=== PATIENT | male | born 1960 | race Hispanic/Latino ===

== ENCOUNTER 2024-03-23 11:36 | Emergency (ER) | payer BC ==
[~2024-03-23] VITALS: Ht 175.3 cm; Wt 69.9 kg
[2024-03-23 12:50] LABS: BASOPHILS # (AUTO) 0.04 K/uL (0.00-0.20); BASOPHILS % (AUTO) 0.5 % (0.0-5.0); EOSINOPHILS # (AUTO) 0.13 K/uL (0.00-0.70); EOSINOPHILS % (AUTO) 1.7 % (0.0-8.0); IMMATURE GRANULOCYTE ABSOLUTE 0.04 K/uL (0-1); LYMPHOCYTES # (AUTO) 2.1 K/uL (1.0-4.8); LYMPHOCYTES % (AUTO) 26.1 % (21.0-51.0); MEAN CORPUSCULAR HEMOGLOBIN 28.8 pg (27.0-33.0); MEAN CORPUSCULAR HGB CONC 34.1 g/dL (32.0-36.0); MEAN CORPUSCULAR VOLUME 84.4 fL (79-99); MONOCYTES # (AUTO) 0.6 K/uL (0.1-1.0); MONOCYTES % (AUTO) 7.6 % (3.0-13.0); NEUTROPHILS % (AUTO) 63.6 % (40.0-77.0); PLATELET COUNT (AUTO) 199 K/uL (130-400); RED BLOOD CELL COUNT(AUTO) 4.62 MIL/uL (4.50-6.20); RED CELL DISTRIBUTION WIDTH 12.3 % (11.0-15.5); WHITE BLOOD COUNT (AUTO) 7.9 K/uL (4.8-10.8)
[2024-03-23 13:10] LABS: CREATININE 0.8 mg/dL (0.5-1.3)
[2024-03-23 13:14] LABS: B-TYPE NATRIURETIC PEPTIDE 31 pg/mL (0-100)
[2024-03-23 14:29] LABS: ADD UA MICROSCOPIC YES; APPEARANCE,URINE CLEAR (CLEAR); BILIRUBIN,URINE NEGATIVE (NEGATIVE); COLOR,URINE LIGHT-YELLOW (YELLOW); GLUCOSE, URINE (UA) >=1000 mg/dL (NEGATIVE); KETONES,URINE NEGATIVE (NEGATIVE); LEUKOCYTE ESTERASE ,URINE NEGATIVE Leu/uL (NEGATIVE); NITRATE,URINE NEGATIVE (NEGATIVE); OCCULT BLOOD,URINE NEGATIVE (NEGATIVE); PROTEIN,URINE NEGATIVE (NEGATIVE); UROBILINOGEN,URINE 0.2 mg/dL (0.2-1.0)
[2024-03-23 14:30] LABS: RBC,URINE 0-1 /HPF (0-1); WBC,URINE 0-1 /HPF (0-1)
[2024-03-23 15:05] VITALS: BP 144/84; PULSE 67; RESP 16; TEMP 98.3; O2SAT 98
== END 2024-03-23 15:11 | disposition home or self-care (01) ==
LOC: EDH 11:36
DX: I10 Essential (primary) hypertension (principal); R42 Dizziness and giddiness; E11.9 Type 2 diabetes mellitus without complications; E78.00 Pure hypercholesterolemia, unspecified; Z98.890 Other specified postprocedural states
CPT/HCPCS: 36415; 71045; 80048; 81001; 82550; 83880; 84484; 85025; 93005

== ENCOUNTER → 2024-05-17 | Outpatient (CLI) | payer BC ==
[~2024-05-17] MED LIST: EMPA25TA PO; FERS325 PO; HYDR25TA PO; LOSA100T59 PO; METF-446 PO; ROSU40TA88 PO; VITAD50000 PO
[2024-05-17 12:42] LABS: ALBUMIN 3.7 g/dL (3.5-5.0); BILIRUBIN,TOTAL 0.3 mg/dL (0.2-1.0); CREATININE 0.7 mg/dL (0.5-1.3); POTASSIUM 4.1 mmol/L (3.5-5.1); TOTAL PROTEIN, SERUM 7.4 g/dL (6.0-8.3)
== END | disposition home or self-care (01) ==
LOC: LAB 08:08
PROVIDERS: ATTEND Student in an Organized Health Care Education/Training Program
DX: E11.9 Type 2 diabetes mellitus without complications (principal); R07.9 Chest pain, unspecified; E78.5 Hyperlipidemia, unspecified; I16.1 Hypertensive emergency
CPT/HCPCS: 36415; 80053

== ENCOUNTER → 2024-05-25 | Outpatient (CLI) | payer BC ==
[~2024-05-25] MED LIST changes: +IOHEXOL 350 MG/ML 100ML INFUS..BTL IV ONE
--- NOTE | 2024-05-25 13:13 | HMCIMG ---
CT OF THE CHEST WITH CONTRAST- CT Cardiac Angio co-interpretation This is done as part of the CT cardiac angiogram study. The interpretation of the coronary arteries will be done by lab nurse in a separate report. History: over-read Comparison: none CT Dose Index (CTDI): 77.90 mGy Dose Length Product (DLP): 493.40 total mGy PROTOCOL: Examination is done at 2.5 millimeter volumetric acquisition after contrast administration with Isovue 370, 100 cc IV, without complications. Photography is done at 5 millimeter thick intervals for the thorax. The examination begins above the heart and therefore the lung apices are incompletely included. The rest of the left lung is included but the right lung is only included up to its middle third. The periphery of the right lung is not included in the study. FINDINGS: The visualized part of the airway is preserved. The bony and soft tissue structures of the chest wall are unremarkable. The aorta is unremarkable. No mediastinal lymphadenopathy is seen. The lung windows demonstrate no worrisome pulmonary nodules, masses or infiltrates. There is no evidence of pulmonary embolism in the visualized lung segments. The upper abdominal views are unremarkable. Impression: No significant abnormalities identified.
--- NOTE | 2024-05-29 07:59 | CARDIOLOGY ---
RAD REPORT: [facility] CT ANGIO RADIOLOGY REPORT: CORONARY CT ANGIOGRAPHY DATE: May 29, 2024 QUALITY: Excellent CLINICAL HISTORY AND INDICATION: [ chest pain ] TECHNIQUE: After obtaining a preliminary supervisor speech image, contrast imaging performed on an [employer]illon [id number] scanner. A dedicated, limited window, coronary imaging protocol was used, with single breath-hold, retrospective ECG gating, and automated arrhythmia rejection. 100 cc of low osmolar contrast agent: Omnipaque 350 was delivered via a 18-gauge IV catheter in the right antecubital fossa, using a power injector and followed by 60 cc of normal saline bolus as a chaser. Collimated images were reformatted at 0.5 mm intervals, and sent to an offline independent workstation for interpretation, using 3D anatomic reconstructions: Curved multiplanar reconstructions, maximum intensity projections, and multiplanar imaging. No metoprolol was administered prior to scanning due to low baseline heart rate. 0.8 mg SL nitroglycerin was given. CORONARY ARTERY DESCRIPTIONS: The coronary arteries arise in normal position. Left main coronary artery: Normal caliber vessel that bifurcates into the LAD and LCx. No stenosis. Left anterior descending coronary artery: Normal caliber vessel and gives rise to diagonal and septal branches. There is ostial/proximal LAD stenosis with 70%. However, due to motion artifact from abrupt rise in heart rate during scan time, stenosis may be overestimated. Left circumflex coronary artery: Normal caliber, nondominant and gives rise to a large OM branch. There is mixed calcified and noncalcified plaque in the proximal LCx with 50% stenosis. There is calcified plaque in the mid LCx with 20-30% stenosis. Right coronary artery: Large, dominant vessel giving rise to the PL and PDA branches. There is mixed calcified and noncalcified plaque in the proximal RCA with 50% stenosis. There is calcified plaque in the mid and distal RCA, both with 50-60% stenosis. However, due to motion artifact from abrupt rise in heart rate during scan time, stenosis may be overestimated. CAD-RADs: 4A, severe stenosis of LAD vs motion artifact. Thoracic Aorta: Normal diameter. Kathy Avila MD Cardiovascular Disease [facility] KATHY AVILA MD May 29, 2024 07:59
== END | disposition home or self-care (01) ==
LOC: RAH 10:39
PROVIDERS: ATTEND Student in an Organized Health Care Education/Training Program
DX: R07.9 Chest pain, unspecified (principal)
CPT/HCPCS: 75574; Q9967

== ENCOUNTER 2024-06-22 13:49 | Observation (INO) | payer BC ==
[~2024-06-22] VITALS: Ht 175.3 cm; Wt 67.6 kg
[~2024-06-22 13:49] MED LIST changes: -IOHEXOL 350 MG/ML 100ML INFUS..BTL IV ONE
[2024-06-22 14:25] LABS: BASOPHILS # (AUTO) 0.05 K/uL (0.00-0.20); BASOPHILS % (AUTO) 0.5 % (0.0-5.0); EOSINOPHILS # (AUTO) 0.09 K/uL (0.00-0.70); EOSINOPHILS % (AUTO) 0.9 % (0.0-8.0); HEMATOCRIT 33.2 % (42-54); IMMATURE GRANULOCYTE ABSOLUTE 0.04 K/uL (0-1); LYMPHOCYTES # (AUTO) 1.9 K/uL (1.0-4.8); LYMPHOCYTES % (AUTO) 19.7 % (21.0-51.0); MEAN CORPUSCULAR HEMOGLOBIN 29.2 pg (27.0-33.0); MEAN CORPUSCULAR HGB CONC 34.9 g/dL (32.0-36.0); MEAN CORPUSCULAR VOLUME 83.6 fL (79-99); MONOCYTES # (AUTO) 0.5 K/uL (0.1-1.0); MONOCYTES % (AUTO) 4.7 % (3.0-13.0); NEUTROPHILS % (AUTO) 73.8 % (40.0-77.0); PLATELET COUNT (AUTO) 258 K/uL (130-400); RED BLOOD CELL COUNT(AUTO) 3.97 MIL/uL (4.50-6.20); RED CELL DISTRIBUTION WIDTH 12.2 % (11.0-15.5); WHITE BLOOD COUNT (AUTO) 9.5 K/uL (4.8-10.8)
--- NOTE | 2024-06-22 14:26 | EKG ---
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
[2024-06-22 14:38] LABS: CREATININE 0.7 mg/dL (0.5-1.3); POTASSIUM 3.8 mmol/L (3.5-5.1)
[2024-06-22 14:40] LABS: INR <= 0.93 (0.85-1.15); PROTHROMBIN TIME 10.2 SEC (9.6-11.6)
[2024-06-22 14:41] LABS: PARTIAL THROMBOPLASTIN TIME 24.1 SEC (26.3-35.5)
[2024-06-22 14:47] LABS: APPEARANCE,URINE CLEAR (CLEAR); BILIRUBIN,URINE NEGATIVE (NEGATIVE); COLOR,URINE LIGHT-YELLOW (YELLOW); GLUCOSE, URINE (UA) 300 mg/dL (NEGATIVE); KETONES,URINE NEGATIVE (NEGATIVE); LEUKOCYTE ESTERASE ,URINE NEGATIVE Leu/uL (NEGATIVE); NITRATE,URINE NEGATIVE (NEGATIVE); OCCULT BLOOD,URINE NEGATIVE (NEGATIVE); PH,URINE 5.5 (5.0-8.0); PROTEIN,URINE 10 mg/dL (NEGATIVE); UROBILINOGEN,URINE 0.2 mg/dL (0.2-1.0)
[2024-06-22 15:02] LABS: BACTERIA,URINE RARE /HPF (None Seen); MUCUS,URINE RARE LPF (None Seen)
[2024-06-22] MEDS ORDERED: acetaMINOPHEN 500 MG TABLET PO PRN (15:30)
[2024-06-22] MEDS ORDERED: ondanSETRON 4MG INJ IVP PRN (15:30)
[2024-06-22] MEDS ORDERED: NITROGLYCERIN 0.4 MG SL TAB SL PRN (15:30)
[2024-06-22] MEDS: 0.9%NACL 1000ML 1,000 ML IV SCH (15:59)
--- NOTE | 2024-06-22 15:59 | NUR ---
PER DR. CASTANEDA, HE CALLED DR. ABDI AND SPOKE TO HIM ABOUT CONSULT. STATES WILL NOT SEE PT UNLESS TROPONIN/CARDIAC PANEL IS ABNORMAL. OTHRWISE, PT WILL BE SEEN FOR PROCEDURE OUTPATIENT.
--- NOTE | 2024-06-22 16:00 | HP ---
[facility] HISTORY AND PHYSICAL Date of Service: Jun 22, 2024 Time of Service: 15:49 HISTORY OF PRESENT ILLNESS: Date of service: 06/22/2024, patient was seen in [facility] hallway B 63-year-old male with underlying history of hypertension, hyperlipidemia, type 2 diabetes mellitus, who presented to the ER for further evaluation of syncope. Patient states that he was following up in Dr. Avila's clinic today after he had coronary CT angiogram done as outpatient last month. Patient states that Dr. Avila had talked about potential cardiac catheterization after results of the CT coronary angiogram was noted to be abnormal. Per family at bedside, patient had sudden onset of syncope which lasted for several seconds. Patient had an episode of mild urinary incontinence with that. Denies any seizure-like activity, or tongue biting. Per Dr. Avila, patient likely had vasovagal syncope from reacting to the news of the abnormal coronary CT angiogram. On presentation, patient was noted to be afebrile and hemodynamically stable. Denies any episodes of chest pain, shortness of breath, focal weakness of upper or lower extremities. We will watch this patient for 24 hours and ensure he remains stable. I spoke with Dr. Lima on-call for Dr. Avila who stated that if cardiac panel remains negative and patient remains stable, patient can be discharged tomorrow with follow up as outpatient for cardiac catheterization on 06/30/2024. This was discussed with patient and family in detail. REVIEW OF SYSTEMS CONSTITUTIONAL: Denies fevers, chills, or night sweats. No unintentional weight loss reported. NEUROLOGICAL: Patient reports having syncopal episode in clinic today ENT: No hearing loss, otalgia, otorrhea, rhinitis, rhinorrhea, hoarseness, or sore throat. CARDIOVASCULAR: Denies any exertional angina, dyspnea on exertion, orthopnea, paroxysmal nocturnal dyspnea, palpitations, life-threatening arrhythmias, claudication. PULMONARY: Denies any shortness of breath, cough, phlegm/sputum, hemoptysis, pleuritic chest pain. SLEEP: Denies morning headaches, daytime somnolence or napping. Denies difficulty falling asleep, staying asleep, waking from sleep. Denies knowledge of snoring. GASTROINTESTINAL: Denies any type of dysphagia to either liquids or solids. Denies nausea, vomiting, pyrosis, early satiety, abdominal pain, diarrhea, constipation, or changes in stool consistency or caliber. Denies coffee-ground emesis, hematemesis, hematochezia, or melanotic stools. GENITOURINARY: Denies frequency, urgency, nocturia, hematuria or incontinence (Storage/Irritative symptoms.) Low urinary stream, straining to void, urinary intermittency or hesitancy, splitting of the voiding stream, terminal dribbling. ENDOCRINOLOGIC: Denies polyuria, polydipsia, polyphagia or heat/cold intolerances. HEMATOLOGIC: Denies thrombophilia/previous clots, or coagulopathy/bleeding disorders. ONCOLOGIC: Denies personal history of malignancy. DERMATOLOGIC: Denies rashes or pruritus. PSYCHIATRIC: Denies any suicidal or homicidal ideation. Denies hallucinations. PAST MEDICAL HISTORY: Hypertension, hyperlipidemia, type 2 diabetes mellitus PAST SURGICAL HISTORY: Denies any history of significant surgeries PAST SOCIAL HISTORY: Denies active smoking, drinks socially, denies any illicit drug use FAMILY HISTORY: History of heart disease in father and mother in patient states that the required cardiac bypass surgery Allergies: Patient has no known drug allergies Home medications: Family will be bringing list of home medications to be reconciled and updated, no home medication list available at bedside Coded Allergies: No Known Allergies (Unverified Allergy, Unknown, 03/23/24) PHYSICAL EXAM GENERAL APPEARANCE: The patient is awake, alert, and oriented, in no acute cardiopulmonary distress. NEUROLOGICAL: Cranial nerves II-XII grossly intact. Motor is 5/5 in bilateral upper and lower extremities proximal to distal. No sensory deficits. HEENT: Face is symmetric. Pupils are equal and reactive. Extraocular movements are intact. NECK: Supple. No JVD. No thyromegaly. No submental, submandibular, pre- /postauricular, occipital or supraclavicular lymphadenopathy. CHEST: Normal chest expansion. No Telemetry. LUNGS: Absence of any rales, rhonchi or any wheezing. CARDIOVASCULAR: Regular. S1 and S2 normal. No appreciable rubs, murmurs or gallops. ABDOMEN: Soft, nontender, and nondistended. There is no rebound, voluntary guarding, or rigidity. : Deferred. No Avalos. EXTREMITIES: Non-edematous and not cyanotic. No clubbing. Good capillary refill. SKIN: No skin breakdown. Vital Sign (Last 24 Hours) 06/22/24 06/22/24 13:51 14:33 Temp 98.1 Pulse 68 Resp 16 B/P (MAP) 146/72 Pulse Ox 97 O2 Delivery Room Air* O2 Flow Rate 0 FiO2 21 LABS: Laboratory: Test 06/22/24 14:39 06/22/24 14:15 Range/Units Urine Color LIGHT-YELLOW YELLOW Urine Appearance CLEAR CLEAR Urine pH 5.5 5.0-8.0 Urine Specific [place] 1.024 1.001-1.031 Urine Protein 10 H NEGATIVE mg/dL Urine Glucose (UA) 300 H NEGATIVE mg/dL Urine Ketones NEGATIVE NEGATIVE mg/dL Urine Occult Blood NEGATIVE NEGATIVE Urine Nitrate NEGATIVE NEGATIVE Urine Bilirubin NEGATIVE NEGATIVE mg/dL Urine Urobilinogen 0.2 0.2-1.0 mg/dL Urine Leukocyte Esterase NEGATIVE NEGATIVE Jamee/uL Urine RBC 2-5 H 0-1 /HPF Urine WBC 2-5 H 0-1 /HPF Urine Bacteria RARE None Seen /HPF Urine Hyaline Casts 2-5 H 0-1 /LPF /LPF White Blood Count 9.5 4.8-10.8 K/uL Red Blood Count 3.97 L 4.50-6.20 MIL/uL Hemoglobin 11.6 L 14.0-18.0 g/dL Hematocrit 33.2 L 42-54 % Mean Corpuscular Volume 83.6 79-99 fL Mean Corpuscular Hemoglobin 29.2 27.0-33.0 pg Mean Corpuscular Hemoglobin Concent 34.9 32.0-36.0 g/dL Red Cell Distribution Width 12.2 11.0-15.5 % Platelet Count 258 130-400 K/uL Mean Platelet Volume 11.4 H 7.5-10.5 fL Immature Granulocyte % (Auto) 0.4 0-1 % Neutrophils (%) (Auto) 73.8 40.0-77.0 % Lymphocytes (%) (Auto) 19.7 L 21.0-51.0 % Monocytes (%) (Auto) 4.7 3.0-13.0 % Eosinophils (%) (Auto) 0.9 0.0-8.0 % Basophils (%) (Auto) 0.5 0.0-5.0 % Neutrophils # (Auto) 7.0 1.8-7.7 K/uL Lymphocytes # (Auto) 1.9 1.0-4.8 K/uL Monocytes # (Auto) 0.5 0.1-1.0 K/uL Eosinophils # (Auto) 0.09 0.00-0.70 K/uL Basophils # (Auto) 0.05 0.00-0.20 K/uL Absolute Immature Granulocyte (auto 0.04 0-1 K/uL Nucleated Red Blood Cells 0.0 0.0-0.19 % Prothrombin Time 10.2 9.6-11.6 SEC Prothromb Time International Ratio <= 0.93 0.85-1.15 Activated Partial Thromboplast Time 24.1 L 26.3-35.5 SEC Sodium Level 132 L 136-145 mmol/L Potassium Level 3.8 3.5-5.1 mmol/L Chloride Level 96 L 101-111 mmol/L Carbon Dioxide Level 32 21-32 mmol/L Blood Urea Nitrogen 17 7-18 mg/dL Creatinine 0.7 0.5-1.3 mg/dL Glomerular Filtration Rate Calc 103 >90 mL/min Random Glucose 156 H 70-105 mg/dL Total Calcium 9.2 8.5-10.1 mg/dL Troponin I High Sensitivity 9 4-75 ng/L Current Medications Medications (Trade) Dose Ordered Sig/Farnk Route PRN Reason Start Time Stop Time Status Last Admin Dose Admin Acetaminophen (TYLenol 500MG TAB) 500 mg Q6H PRN PO MILD PAIN (1-3) 06/22/24 15:30 07/22/24 15:29 Aspirin (Aspirin 81mg Chew Tab) 81 mg DAILY PO 06/23/24 09:00 07/23/24 08:59 Insulin Human Regular (humuLIN R 100 UNIT/ML 3ML) INSULIN SLIDING SCAL... ACHS SQ 06/22/24 16:30 07/22/24 16:29 Nitroglycerin (Nitrostat) 0.4 mg AD PRN SL CHEST PAIN 06/22/24 15:30 07/22/24 15:29 Ondansetron HCl (zoFRAN 4MG INJ) 4 mg Q6H PRN IVP NAUSEA/VOMITING 06/22/24 15:30 07/22/24 15:29 Sodium Chloride 1,000 ml @ 50 mls/hr Q20H IV 06/22/24 16:00 07/22/24 15:59 DIAGNOSTICS / RADIOLOGY: Chest x-ray was independently reviewed, no significant acute infiltrates noted ASSESSMENT: Syncope, concern for vasovagal syncope, POA History of abnormal coronary CT angiogram, POA Underlying history of hypertension, POA Hyponatremia, mild Hyperlipidemia, POA Type 2 diabetes mellitus, POA PLAN: Patient will be admitted to medical-surgical floor under telemetry monitoring Monitor closely for signs of further syncope, we will obtain orthostatic vitals, rule out any significant cardiac arrhythmias I spoke with Dr. Lima on-call for heart clinic who states that he had spoken with Dr. Avila about the patient, patient likely had vasovagal syncope after being told his coronary CT angiogram was abnormal. Plan is for cardiac catheterization on 06/30/2024. For now, plan will be to observe this patient for 24 hours and rule out any significant cardiac arrhythmias and ensure cardiac panel remains negative. If patient remains stable in the next 24 hours, per Dr. Linda's, plan will be for patient to be discharge home and patient to have cardiac catheterization done as outpatient. If patient has any abnormal arrhythmias or cardiac panel is positive, or if patient has recurrence of symptoms, Cardiology will follow up with this patient tomorrow for consultation With regards to hyponatremia, we will start patient on gentle IV hydration with NS at 50 mL/hour, we will also check orthostatic vitals We will reconciled home medications once available, patient to continue with home antihypertensive therapy, losartan and amlodipine, we will check to see if patient is on HCTZ which can cause Hyponatremia We will trend cardiac panel q.6 hours to rule out active ACS All labs will be repeated in the morning DVT prophylaxis with Lovenox and GI prophylaxis with Protonix Date of service: 06/22/2024, Plan of care was discussed with patient at bedside, Jhonatan Dillon MD Advanced Care Planning: Which of the following were discussed: Hospice care: Yes __ No _X_ Therapeutic options: Yes _X_ No __ Advance directives: Yes _X_ No __ Other discussions: Discussed with who?: Patient Voluntary nature of this service was explained to the patient? Yes _x_ No __ Amount of time spent: 20 minutes JHONATAN DILLON MD Jun 22, 2024 16:00
--- NOTE | 2024-06-22 16:23 | HMCIMG ---
CT HEAD/BRAIN W/O CONTRAST HISTORY: Syncope COMPARISON: None TECHNIQUE: Multiple sequential axial images of the head were obtained from the base of the skull through vertex. Patient was not given contrast through intravenous route. FINDINGS: The ventricles and extraventricular CSF spaces are dilated consistent with cerebral atrophy. Nonspecific white matter changes seen. There are bilateral basal ganglia calcifications. There is no midline shift, mass effect or herniation. No acute intracranial bleed is seen. Visualized portion of the paranasal sinuses are grossly within normal limits. IMPRESSION: 1. No acute intracranial bleed is seen. 2. Atrophy with white matter changes. CT was performed with one or more following dose reduction techniques: automated exposure control, adjustment of the mA and kv according to patient's size, or use of a iterative reconstruction technique.
[2024-06-22 16:24] LABS: ALBUMIN 3.4 g/dL (3.5-5.0); BILIRUBIN,DIRECT 0.1 mg/dL (0.0-0.3); BILIRUBIN,TOTAL 0.3 mg/dL (0.2-1.0); TOTAL PROTEIN, SERUM 7.4 g/dL (6.0-8.3)
[2024-06-22] MEDS: INSULIN humuLIN R 100 UNIT/ML 3ML SQ SCH (16:30)
--- NOTE | 2024-06-22 16:34 | ERN ---
General Chief Complaint: Syncope Stated Complaint: SYNCOPE Time Seen by MD: 13:56 History of Present Illness Initial Comments 63-year-old male came in for a syncopal episode. Patient was at his cardiology clinic when he had loss of consciousness. Patient denies trauma or hitting his head during this episode. Patient otherwise has no concerns. Allergies: Coded Allergies: No Known Allergies (Unverified Allergy, Unknown, 03/23/24) Home Meds Reported Medications Cholecalciferol (Vitamin D3) 1,250 Mcg (17673 Unit) Cap, 13857 UNITS PO QWEEK, CAP 04/01/24 Empagliflozin (Jardiance) 25 Mg Tablet, 1 TAB PO DAILY for 30 Days, #30 TAB 0 Refills 04/01/24 Hydrochlorothiazide (Hydrochlorothiazide) 25 Mg Tablet, 1 TAB PO DAILY for 30 Days, #30 TAB 0 Refills 04/01/24 Metformin HCl (Metformin HCl) 1,000 Mg Tablet, 1 TAB PO BID for 30 Days, #60 TAB 0 Refills 04/01/24 Rosuvastatin Calcium (Rosuvastatin Calcium) 40 Mg Tablet, 1 TAB PO DAILY for high cholesterol for 30 Days, #30 TAB 0 Refills 04/01/24 Losartan Potassium (Losartan Potassium) 100 Mg Tablet, 100 MG PO HS, TAB 04/01/24 Ferrous Sulfate (Ferrous Sulfate) 325 Mg (65 Mg Iron) Ectab, 1 TAB PO BID for 30 Days, #60 TAB 0 Refills 04/01/24 Past Medical History Past Medical History: CAD, Diabetes-Type II, High Cholesterol, Hypertension Past Surgical History: None ROS Dictation CONSTITUTIONAL: Negative except for HPI HEAD/FACE: Negative except for HPI EENT: Negative except for HPI RESPIRATORY: Negative except for HPI GASTROINTESTINAL/ABDOMINAL: Negative except for HPI GENITOURINARY: Negative except for HPI MUSCULOSKELETAL: Negative except for HPI INTEGUMENTARY: Negative except for HPI NEUROLOGICAL/PSYCH: Negative except for HPI HEMATOLOGIC/LYMPHATIC: Negative except for HPI All Systems Negative, Except as noted above. 13 point review of systems assessed and all negative except for above. Physical Exam Physical Exam Dictation Vital Signs reviewed General Appearance: Alert, oriented x 3, no acute distress, well developed, nourished. Head and Face: non-traumatic. Eyes: PERRL, pink conjunctivas, eyelid no trauma, anterior chamber with arcus senilis. Ears: Pinnas intact and no signs of trauma or erythema ear canals clear and no discharge TM no erythema Nose: No discharge, no bleeding. Oropharynx: Mouth normal, tongue pink, pharynx clear,no erythema, tonsils no exudates, no abscesses noted, mucous membrane moist Neck: Supple, non-tender, no thyromegaly, no masses, no JVD, no bruits Breast:Deferred Chest:No tenderness, no crepitus, no paradoxical movement, no retractions Lungs:Clear, well-ventilated, symmetric, no rales, no wheezing, no rhonchi, no stridor, good breath sounds bilaterally Heart: Regular rate, regular rhythm, no murmur, no gallops Vascular: no peripheral edema, Abdomen: Soft, positive bowel sounds, nondistended, no guarding, nontender, no rebound, no masses no hepatomegaly, no splenomegaly, no Christopher's sign, no hernias. Rectal: Deferred Genital: Deferred Neurological: Normal speech, motor function intact, sensory function intact Musculoskeletal: Neck nontender, full range of motion, back nontender, full range of motion, Extremities: nontender, full range of motion Skin: Color pink, dry, no turgor, no rash, no lacerations, no abrasions, no contusions. Lymphatic: Deferred Results Laboratory and Microbiology Lab and Micro Result Laboratory Tests Test 06/22/24 14:15 06/22/24 14:39 White Blood Count 9.5 K/uL (4.8-10.8) Red Blood Count 3.97 MIL/uL (4.50-6.20) L Hemoglobin 11.6 g/dL (14.0-18.0) L Hematocrit 33.2 % (42-54) L Mean Corpuscular Volume 83.6 fL (79-99) Mean Corpuscular Hemoglobin 29.2 pg (27.0-33.0) Mean Corpuscular Hemoglobin Concent 34.9 g/dL (32.0-36.0) Red Cell Distribution Width 12.2 % (11.0-15.5) Platelet Count 258 K/uL (130-400) Mean Platelet Volume 11.4 fL (7.5-10.5) H Immature Granulocyte % (Auto) 0.4 % (0-1) Neutrophils (%) (Auto) 73.8 % (40.0-77.0) Lymphocytes (%) (Auto) 19.7 % (21.0-51.0) L Monocytes (%) (Auto) 4.7 % (3.0-13.0) Eosinophils (%) (Auto) 0.9 % (0.0-8.0) Basophils (%) (Auto) 0.5 % (0.0-5.0) Neutrophils # (Auto) 7.0 K/uL (1.8-7.7) Lymphocytes # (Auto) 1.9 K/uL (1.0-4.8) Monocytes # (Auto) 0.5 K/uL (0.1-1.0) Eosinophils # (Auto) 0.09 K/uL (0.00-0.70) Basophils # (Auto) 0.05 K/uL (0.00-0.20) Absolute Immature Granulocyte (auto 0.04 K/uL (0-1) Nucleated Red Blood Cells 0.0 % (0.0-0.19) Prothrombin Time 10.2 SEC (9.6-11.6) Prothromb Time International Ratio <= 0.93 (0.85-1.15) Activated Partial Thromboplast Time 24.1 SEC (26.3-35.5) L Sodium Level 132 mmol/L (136-145) L Potassium Level 3.8 mmol/L (3.5-5.1) Chloride Level 96 mmol/L (101-111) L Carbon Dioxide Level 32 mmol/L (21-32) Blood Urea Nitrogen 17 mg/dL (7-18) Creatinine 0.7 mg/dL (0.5-1.3) Glomerular Filtration Rate Calc 103 mL/min (>90) Random Glucose 156 mg/dL (70-105) H Total Calcium 9.2 mg/dL (8.5-10.1) Total Bilirubin 0.3 mg/dL (0.2-1.0) Direct Bilirubin 0.1 mg/dL (0.0-0.3) Aspartate Amino Transf (AST/SGOT) 15 U/L (10-37) Alanine Aminotransferase (ALT/SGPT) 22 U/L (12-78) Alkaline Phosphatase 94 U/L (50-136) Troponin I High Sensitivity 9 ng/L (4-75) Total Protein 7.4 g/dL (6.0-8.3) Albumin 3.4 g/dL (3.5-5.0) L Urine Color LIGHT-YELLOW (YELLOW) Urine Appearance CLEAR (CLEAR) Urine pH 5.5 (5.0-8.0) Urine Specific [place] 1.024 (1.001-1.031) Urine Protein 10 mg/dL (NEGATIVE) H Urine Glucose (UA) 300 mg/dL (NEGATIVE) H Urine Ketones NEGATIVE mg/dL (NEGATIVE) Urine Occult Blood NEGATIVE (NEGATIVE) Urine Nitrate NEGATIVE (NEGATIVE) Urine Bilirubin NEGATIVE mg/dL (NEGATIVE) Urine Urobilinogen 0.2 mg/dL (0.2-1.0) Urine Leukocyte Esterase NEGATIVE Jamee/uL Urine RBC 2-5 /HPF (0-1) H Urine WBC 2-5 /HPF (0-1) H Urine Bacteria RARE /HPF (None Seen) Urine Hyaline Casts 2-5 /LPF (0-1 /LPF) H MDM MDM: Differential diagnosis: Rationale: Tests considered and ordered secondary to shared decision making include: Previous outside records reviewed: Old ER visits. Risk of complication and/or morbidity or mortality of patient management: None Medications-Per medication reconciliation Need for hospitalization: Patient does meet criteria for hospitalization. Need for emergency major/minor surgery: No There are no social concerns with this patient. Prescription drug management Prescriptions will include symptomatic care Patient's prior external medical records from other ER visits were reviewed by me as indicated. Prior testing and results from previous visits were reviewed. Prior tests were taken into account with medical decision making and resource utilization, independent historian/historians were used to obtain complete medical history. I independently interpreted the test that were performed, results were reviewed by me and considered findings on radiology if ordered. Medical management and examination interpretation discussions were had by me with other qualified healthcare professionals as indicated for the patient's care. ED Course Orders Procedure Category Date Status Time 12 Lead Ekg Tracing- EKG 06/22/24 Resulted Technical 14:04 Cbc With Differential LAB 06/22/24 Complete 14:04 Basic Metabolic Panel LAB 06/22/24 Complete 14:04 Pt And Ptt LAB 06/22/24 Complete 14:04 Troponin I High LAB 06/22/24 Complete Sensitivity 14:04 Urinalysis LAB 06/22/24 Complete W/Microscopic 14:04 Chest 1vw RAD 06/22/24 Taken 14:04 Ct Head/Brain W/O CT 06/22/24 Resulted Contrast 14:04 Admit Orders ADM 06/22/24 Transmitted 15:24 Cardiac Panel LAB 06/22/24 Logged 18:00 Cardiac Panel LAB 06/23/24 Verified 00:00 Scd Both Legs While CPOE 06/22/24 Transmitted In Bed 15:29 Acetaminophen 500mg PHA 06/22/24 In Process Tab (Tylenol 500mg T 15:30 Ondansetron 4mg Inj PHA 06/22/24 In Process (Zofran 4mg Inj) 15:30 Nitroglycerin 0.4mg PHA 06/22/24 In Process Sl Tab (Nitrostat) 15:30 Orthostatic Vital CPOE 06/22/24 Transmitted Signs 15:30 Cbc With Differential LAB 06/23/24 Verified 04:00 Comprehensive LAB 06/23/24 Verified Metabolic Panel 04:00 Magnesium LAB 06/23/24 Verified 04:00 Initiate ROMI 06/22/24 In Process Hyperglycemia Protoco 15:32 Insulin Regular, PHA 06/22/24 In Process Human 3ml (Humulin R 16:30 0.9%Nacl 1000ml (Ns PHA 06/22/24 In Process 1000ml) 16:00 Aspirin 81mg Chew Tab PHA 06/23/24 In Process (Aspirin 81mg Chew 09:00 *Nursing CPOE 06/22/24 Transmitted Communication: 15:35 Hepatic Function Panel LAB 06/22/24 Complete 15:44 Gi Soft/[place] Diet DIET 06/22/24 Transmitted Dinner Current Medications Medications (Trade) Dose Ordered Sig/Frank Route PRN Reason Start Time Stop Time Status Last Admin Dose Admin Acetaminophen (TYLenol 500MG TAB) 500 mg Q6H PRN PO MILD PAIN (1-3) 06/22/24 15:30 07/22/24 15:29 Aspirin (Aspirin 81mg Chew Tab) 81 mg DAILY PO 06/23/24 09:00 07/23/24 08:59 Insulin Human Regular (humuLIN R 100 UNIT/ML 3ML) INSULIN SLIDING SCAL... ACHS SQ 06/22/24 16:30 07/22/24 16:29 Nitroglycerin (Nitrostat) 0.4 mg AD PRN SL CHEST PAIN 06/22/24 15:30 07/22/24 15:29 Ondansetron HCl (zoFRAN 4MG INJ) 4 mg Q6H PRN IVP NAUSEA/VOMITING 06/22/24 15:30 07/22/24 15:29 Sodium Chloride 1,000 ml @ 50 mls/hr Q20H IV 06/22/24 16:00 07/22/24 15:59 06/22/24 15:59 Vital Signs Date Time Temp Pulse Resp B/P (MAP) Pulse Ox O2 Delivery O2 Flow Rate FiO2 06/22/24 14:33 68 16 146/72 97 Room Air* 0 21 06/22/24 13:51 98.1 70 17 152/87 98 Room Air 0 DX & DISP Disposition: Inpatient Departure Impression: Primary Impression: Syncope Condition: Stable Referrals: LOLA WOLFF (PCP) BONG NICOLE MD Jun 22, 2024 16:34
--- NOTE | 2024-06-22 16:52 | NUR ---
DR ABDI NOW AT BEDSIDE
--- NOTE | 2024-06-22 16:55 | NUR ---
DR. ABDI AT BEDSIDE
--- NOTE | 2024-06-22 16:57 | HMCIMG ---
CHEST 1VW HISTORY: Shortness of breath COMPARISON: 03/31/2024 FINDINGS: A frontal projection of the chest was obtained. No acute pulmonary infiltrates is seen. The heart is borderline enlarged. Degenerative changes are seen. Prominent interstitial markings are seen. No evidence of aortic calcification is seen. IMPRESSION: 1. No acute pulmonary infiltrate is seen.
[2024-06-22] MEDS ORDERED: hydrALAZine 20MG/ML VIAL IV PRN (17:30)
[2024-06-22] MEDS ORDERED: ROSU40TA88 PO (19:59)
[2024-06-22] MEDS ORDERED: SPIR25TA6 PO (19:59)
[2024-06-22] MEDS ORDERED: HYDR25TA PO (19:59)
[2024-06-22] MEDS ORDERED: METF-446 PO (19:59)
[2024-06-22] MEDS ORDERED: LOSA100T59 PO (19:59)
[2024-06-22] MEDS ORDERED: AMLO-258 PO (19:59)
[2024-06-22] MEDS: LoSARTan 100 MG TABLET PO SCH (20:23)
--- NOTE | 2024-06-22 22:27 | NUR ---
Vu DOLAN NP HERE TO SEE PATIENT
--- NOTE | 2024-06-22 22:29 | CONS ---
[facility] CONSULTATION NOTE Date Patient Seen: Jun 22, 2024 Time of Visit: 22:29 Supervising Physician: [ ] Reason for Consultation: [ ] Primary Care Physician: [ ] Outpatient Specialists: [ ] Inpatient Consults: [ ] PROBLEM LIST: 1. [ ] 2. [ ] 3. [ ] 4. [ ] 5. [ ] HPI: [ ] PAST MEDICAL HX: see above PAST SURGICAL HX: noncontributory SOCIAL HISTORY: No tobacco, ETOH, or illicit drug use Coded Allergies: No Known Allergies (Unverified Allergy, Unknown, 03/23/24) REVIEW OF SYSTEMS: 12 point ROS reviewed with patient. Pertinent positives mentioned above. Otherwise negative. PHYSICAL EXAM: GENERAL: alert, weak, awake oriented x 3 HEENT: EOMI, Sclera non icteric, moist mucosa NECK: Supple, no JVD, trachea midline LUNGS: Clear breath sounds bilaterally. No wheezes HEART: Regular rate and rhythm. Normal S1 and S2, without murmurs ABD: Abdomen soft, nontender. Bowel sounds present EXT: No clubbing cyanosis or edema NEURO: Alert and oriented to person, follows commands Vital Signs (last 8hr) Date Time Temp Pulse Resp B/P (MAP) Pulse Ox O2 Delivery O2 Flow Rate FiO2 06/22/24 20:17 98.6 71 18 153/83 99 Room Air* 0 21 06/22/24 16:57 70 16 166/94 97 Room Air* 0 21 06/22/24 16:57 72 16 162/83 99 Room Air* 0 21 06/22/24 16:56 65 16 160/86 99 Room Air* 0 21 06/22/24 14:33 68 16 146/72 97 Room Air* 0 21 LABS: Hematology Labs: Test 06/22/24 14:15 Range/Units White Blood Count 9.5 4.8-10.8 K/uL Red Blood Count 3.97 L 4.50-6.20 MIL/uL Hemoglobin 11.6 L 14.0-18.0 g/dL Hematocrit 33.2 L 42-54 % Mean Corpuscular Volume 83.6 79-99 fL Mean Corpuscular Hemoglobin 29.2 27.0-33.0 pg Mean Corpuscular Hemoglobin Concent 34.9 32.0-36.0 g/dL Red Cell Distribution Width 12.2 11.0-15.5 % Platelet Count 258 130-400 K/uL Mean Platelet Volume 11.4 H 7.5-10.5 fL Immature Granulocyte % (Auto) 0.4 0-1 % Neutrophils (%) (Auto) 73.8 40.0-77.0 % Lymphocytes (%) (Auto) 19.7 L 21.0-51.0 % Monocytes (%) (Auto) 4.7 3.0-13.0 % Eosinophils (%) (Auto) 0.9 0.0-8.0 % Basophils (%) (Auto) 0.5 0.0-5.0 % Neutrophils # (Auto) 7.0 1.8-7.7 K/uL Lymphocytes # (Auto) 1.9 1.0-4.8 K/uL Monocytes # (Auto) 0.5 0.1-1.0 K/uL Eosinophils # (Auto) 0.09 0.00-0.70 K/uL Basophils # (Auto) 0.05 0.00-0.20 K/uL Absolute Immature Granulocyte (auto 0.04 0-1 K/uL Nucleated Red Blood Cells 0.0 0.0-0.19 % Chemistry Labs: Test 06/22/24 20:49 06/22/24 18:24 06/22/24 14:15 Range/Units Whole Blood Glucose 197 #H 70-110 MG/DL Total Creatine Kinase 46 # 21-232 U/L Troponin I High Sensitivity 8.2 4-75 ng/L Sodium Level 132 L 136-145 mmol/L Potassium Level 3.8 3.5-5.1 mmol/L Chloride Level 96 L 101-111 mmol/L Carbon Dioxide Level 32 21-32 mmol/L Blood Urea Nitrogen 17 7-18 mg/dL Creatinine 0.7 0.5-1.3 mg/dL Glomerular Filtration Rate Calc 103 >90 mL/min Random Glucose 156 H 70-105 mg/dL Total Calcium 9.2 8.5-10.1 mg/dL Total Bilirubin 0.3 0.2-1.0 mg/dL Direct Bilirubin 0.1 0.0-0.3 mg/dL Aspartate Amino Transf (AST/SGOT) 15 10-37 U/L Alanine Aminotransferase (ALT/SGPT) 22 12-78 U/L Alkaline Phosphatase 94 50-136 U/L Total Protein 7.4 6.0-8.3 g/dL Albumin 3.4 L 3.5-5.0 g/dL Coagulation Labs: Test 06/22/24 14:15 Range/Units Prothrombin Time 10.2 9.6-11.6 SEC Prothromb Time International Ratio <= 0.93 0.85-1.15 Activated Partial Thromboplast Time 24.1 L 26.3-35.5 SEC DIAGNOSTICS / RADIOLOGY RESULTS: [ ] PLAN NEURO: Minimize central acting medications as possible. Maintain fall precautions, adequate lighting during the day PULMONARY: Supplemental 02 as needed. Maintain aspiration precautions at all times CARDIOVASCULAR: Follow hemodynamics. Vital signs per facility protocol GI & NUTRITION: Continue with nutritional support. Continue stool softeners and laxatives as needed. KIDNEYS & ELECTROLYTES: Strict monitoring of intake, output and overall fluid balance. Avoid nephrotoxic medications to the extent possible. Medications to be dosed according to renal function. Monitor electrolytes and replace as needed ENDOCRINE: Maintain blood glucose between 100-180 at all times. Hypoglycemia protocol in place INFECTIOUS DISEASE: Trend temperature, WBC and procalcitonin level Follow cultures, deescalate antibiotics as soon as possible. Panculture if new onset fever ONCOLOGY/HEMATOLOGY/COAGULATION: Monitor for s/s of bleeding Monitor hemoglobin, coagulation studies as needed SKIN: Pressure ulcer prevention per facility protocol Specialty mattress ORTHO/REHAB: Continue PT/OT Prophylaxis: Continue GI and DVT prophylaxis Code Status: Full Resuscitation Disposition: TBD Other: Total patient care time exceeds 35 minutes excluding all procedures. SULEMA DOLAN [employer] Jun 22, 2024 22:29
--- NOTE | 2024-06-22 23:30 | NUR ---
Pt arrives to room 229. No CP, SOB, or discomfort. Pt aax3. Education done. Pt oriented to room, call light in reach, bed alarm on. Pt meds reconciled. Pt understands plan of care.
[2024-06-22 23:32] VITALS: BP 157/86; PULSE 69; RESP 18; TEMP 98.1; O2SAT 98
[2024-06-23] VITALS: O2SAT 99
[2024-06-23 04:00] VITALS: BP 133/78; PULSE 63; RESP 18; TEMP 98.2
[2024-06-23 04:56] LABS: BASOPHILS # (AUTO) 0.03 K/uL (0.00-0.20); BASOPHILS % (AUTO) 0.4 % (0.0-5.0); EOSINOPHILS # (AUTO) 0.12 K/uL (0.00-0.70); EOSINOPHILS % (AUTO) 1.6 % (0.0-8.0); HEMATOCRIT 33.2 % (42-54); IMMATURE GRANULOCYTE ABSOLUTE 0.03 K/uL (0-1); LYMPHOCYTES # (AUTO) 2.2 K/uL (1.0-4.8); LYMPHOCYTES % (AUTO) 28.9 % (21.0-51.0); MEAN CORPUSCULAR VOLUME 85.3 fL (79-99); MONOCYTES # (AUTO) 0.4 K/uL (0.1-1.0); MONOCYTES % (AUTO) 5.9 % (3.0-13.0); NEUTROPHILS # (AUTO) 4.7 K/uL (1.8-7.7); NEUTROPHILS % (AUTO) 62.8 % (40.0-77.0); PLATELET COUNT (AUTO) 251 K/uL (130-400); RED BLOOD CELL COUNT(AUTO) 3.89 MIL/uL (4.50-6.20); RED CELL DISTRIBUTION WIDTH 12.3 % (11.0-15.5); WHITE BLOOD COUNT (AUTO) 7.5 K/uL (4.8-10.8)
[2024-06-23 05:15] LABS: ALBUMIN 3.1 g/dL (3.5-5.0); BILIRUBIN,TOTAL 0.4 mg/dL (0.2-1.0); CREATININE 0.7 mg/dL (0.5-1.3); MAGNESIUM 1.8 mg/dL (1.80-2.40); POTASSIUM 3.8 mmol/L (3.5-5.1); TOTAL PROTEIN, SERUM 6.7 g/dL (6.0-8.3)
[2024-06-23] MEDS ORDERED: PoTASSium chl 10% ELIXIR 20MEQ 20 MEQ/15 ML UDCUP PO PRN (06:00)
[2024-06-23] MEDS ORDERED: PoTASSium chloRIDE 20MEQ/100ML 100 ML IV PRN (06:00)
[2024-06-23] MEDS: MAGNESIUM 2GM PREMIX 50ML 50 ML IV SCH (06:27)
[2024-06-23] MEDS: PoTASSium chloRIDE 20MEQ ER 20 MEQ ERTAB PO PRN (06:28)
[2024-06-23 08:00] VITALS: O2SAT 97
[2024-06-23 08:14] VITALS: BP 131/80; PULSE 67; RESP 18; TEMP 97.8
[2024-06-23] MEDS: ASPIRIN 81MG CHEW TAB PO SCH (08:39)
[2024-06-23] MEDS: amLODIPine 5 MG TAB PO SCH (08:39)
--- NOTE | 2024-06-23 11:18 | HMCIMG ---
US CAROTID DUPLEX HISTORY: Syncope COMPARISON: None TECHNIQUE: Duplex carotid arterial Doppler ultrasound study was performed. FINDINGS: The common, internal and external carotid arteries are visualized. The peak systolic velocities of right common carotid artery is 96 centimeters per second, right internal carotid artery is 118 centimeters per second, right external carotid artery is 142 centimeters per second, and right vertebral artery is 67 centimeters per second. Right internal carotid artery to right common carotid artery ratio is 1.. Right vertebral artery is seen with antegrade flow. The peak systolic velocities of left common carotid artery is 79 centimeters per second, left internal carotid artery is 76 centimeters per second, left external carotid artery is 167 centimeters per second, and left vertebral artery is 55 centimeters per second. Left internal carotid artery to left common carotid artery ratio is 1.0. Left vertebral artery is seen with antegrade flow. There are bilateral echogenic plaques. IMPRESSION: 1. No hemodynamically significant lesion is seen of either extracranial carotid artery system.
[2024-06-23 12:13] VITALS: BP 111/74; PULSE 69; RESP 18; TEMP 98
--- NOTE | 2024-06-23 13:09 | NUR ---
DCP Pt awake, alert, oriented x3 lives with spouse Gabby Bliss [phone]. Pt is independent, currently works [employer], does not have medical equipment. Anticipates discharge is for home. Addendum: 06/23/24 at 1319 by JORI CORBIN RN CM Amended: Links added.
[2024-06-23 16:42] VITALS: BP 133/77; PULSE 71; RESP 18; TEMP 98
--- NOTE | 2024-06-23 18:18 | DS ---
Discharge Summary Hospital Course Summary: The patient is a 63-year-old male with a medical history that includes hypertension, hyperlipidemia, and type 2 diabetes mellitus. He presented to the emergency department on June 22, 2024, following an episode of syncope that occurred during a visit to the locomotive supervisor's office. Last month, the patient underwent a CT angiogram and had a recent follow-up appointment with Dr. Avila, who informed him that the results were abnormal and that a cardiac catheterization would be necessary. While seated in the office, the patient began to feel lightheaded and dizzy, ultimately experiencing a syncopal episode of few seconds. Additionally, he reported mild urinary incontinence but denied any chest pain, shortness of breath, head injury or focal weakness in the upper or lower extremities. He was advised to go to the emergency department for further evaluation. Upon presentation, the patient was hemodynamically stable and was admitted to the observation unit with telemetry for further evaluation of potential vasovagal syncope. During his stay, the patient was closely monitored through telemetry, with regular assessments, laboratory tests, and additional investigations. A head CT scan revealed no acute intracranial bleeding, although atrophy and white matter changes were noted. Bilateral carotid Doppler studies indicated no hemodynamically significant lesions in the extracranial or intracranial carotid systems. The patient remained hemodynamically stable, with no arrhythmias detected during telemetry monitoring. The following day, he was able to ambulate independently and was observed to be completely asymptomatic. In conversation, he attributed the syncopal episode to anxiety related to the unwelcome news and did not report any further episodes during his observation period. I engaged in a brief discussion with the patient regarding vasovagal syncope and preventive strategies, utilizing a biomass technician to facilitate understanding. The patient has a coronary angiogram scheduled with Dr. Avila on June 30, 2024. He is deemed medically stable for discharge and will continue follow-up care as an outpatient. Procedure(s): [place] [id number] [address] IMAGING REPORT Signed PATIENT: SEAN FLEMING MR#: [id number] : 1960 SEX: M AGE: 63 LOCATION: EDHIP ORDER [id number] STATUS: ADM [facility] REPORT#: [id number] SERVICE 03 REASON: Shortness of breath ORDERING PHYSICIAN: BONG NICOLE MD PROCEDURE: CXR1VW - CHEST 1VW CHEST 1VW HISTORY: Shortness of breath COMPARISON: 03/31/2024 FINDINGS: A frontal projection of the chest was obtained. No acute pulmonary infiltrates is seen. The heart is borderline enlarged. Degenerative changes are seen. Prominent interstitial markings are seen. No evidence of aortic calcification is seen. IMPRESSION: 1. No acute pulmonary infiltrate is seen. DICTATED BY: CARMEN SIN MD DATE: 06/22/241653 ELECTRONICALLY SIGNED BY: CARMEN SIN MD DATE: 06/22/241656 [place] [address] [address] IMAGING REPORT Signed PATIENT: SEAN FLEMING MR#: [id number] : 1960 SEX: M AGE: 63 LOCATION: ED ORDER 04 STATUS: REG REPORT#: [id number] SERVICE 03 REASON: Syncope ORDERING PHYSICIAN: BONG NICOLE MD PROCEDURE: HEAD WO - CT HEAD/BRAIN W/O CONTRAST CT HEAD/BRAIN W/O CONTRAST HISTORY: Syncope COMPARISON: None TECHNIQUE: Multiple sequential axial images of the head were obtained from the base of the skull through vertex. Patient was not given contrast through intravenous route. FINDINGS: The ventricles and extraventricular CSF spaces are dilated consistent with cerebral atrophy. Nonspecific white matter changes seen. There are bilateral basal ganglia calcifications. There is no midline shift, mass effect or herniation. No acute intracranial bleed is seen. Visualized portion of the paranasal sinuses are grossly within normal limits. IMPRESSION: 1. No acute intracranial bleed is seen. 2. Atrophy with white matter changes. CT was performed with one or more following dose reduction techniques: automated exposure control, adjustment of the mA and kv according to patient's size, or use of a iterative reconstruction technique. DICTATED BY: CARMEN SIN MD DATE: 06/22/241619 ELECTRONICALLY SIGNED BY: CARMEN SIN MD DATE: 06/22/241622 [place] [address] [address] IMAGING REPORT Signed PATIENT: SEAN FLEMING MR#: [id number] : 1960 SEX: M AGE: 63 LOCATION: 2AH ORDER 06 STATUS: ADM IN REPORT#: [id number] SERVICE 06 REASON: syncope, CAD ORDERING PHYSICIAN: SULEMA DOLAN PROCEDURE: CAROTID - US CAROTID DUPLEX US CAROTID DUPLEX HISTORY: Syncope COMPARISON: None TECHNIQUE: Duplex carotid arterial Doppler ultrasound study was performed. FINDINGS: The common, internal and external carotid arteries are visualized. The peak systolic velocities of right common carotid artery is 96 centimeters per second, right internal carotid artery is 118 centimeters per second, right external carotid artery is 142 centimeters per second, and right vertebral artery is 67 centimeters per second. Right internal carotid artery to right common carotid artery ratio is 1.. Right vertebral artery is seen with antegrade flow. The peak systolic velocities of left common carotid artery is 79 centimeters per second, left internal carotid artery is 76 centimeters per second, left external carotid artery is 167 centimeters per second, and left vertebral artery is 55 centimeters per second. Left internal carotid artery to left common carotid artery ratio is 1.0. Left vertebral artery is seen with antegrade flow. There are bilateral echogenic plaques. IMPRESSION: 1. No hemodynamically significant lesion is seen of either extracranial carotid artery system. DICTATED BY: CARMEN SIN MD DATE: 06/23/24 111 ELECTRONICALLY SIGNED BY: CARMEN SIN MD DATE: 06/23/24 1118 Assessment/Plan: ASSESSMENT: Syncope, concern for vasovagal syncope, resolved POA History of abnormal coronary CT angiogram, POA Underlying history of hypertension, POA Hyponatremia, mild Hyperlipidemia, POA Type 2 diabetes mellitus, POA Admission Date: 06/22/2024 Discharge Date: 06/23/2024 Disposition: Home Condition: Stable Activity: Ad Yessenia Home medications: Continued Discharge medications: None Follow up appointment: Follow up with the locomotive supervisor within 7 days of the discharge. The patient is scheduled to go for coronary angiogram on 06/30/[address] Avila We reinforced the importance of medication compliance and follow up appointment Discharge Instructions: Avoid Standing for prolonged periods, Being in hot or crowded environments, Seeing blood or needles, and Experiencing intense pain or fear. Sit or lie down when you feel lightheaded or dizzy. Cross your legs or tense your muscles when you experience symptoms. Use a cane or walker if needed for stability. Eat a diet high in fiber and salt Drink plenty of fluids Home Medications: Reported Medications Metformin HCl (Metformin HCl) 1,000 Mg Tablet, 1 TAB PO BID for 30 Days, #60 TAB 0 Refills 06/22/24 Spironolactone (Spironolactone) 25 Mg Tablet, 1 TAB PO DAILY for 30 Days, #30 TAB 0 Refills 06/22/24 Rosuvastatin Calcium (Rosuvastatin Calcium) 40 Mg Tablet, 1 TAB PO DAILY for high cholesterol for 30 Days, #30 TAB 0 Refills 06/22/24 Losartan Potassium (Losartan Potassium) 100 Mg Tablet, 1 TAB PO DAILY for 30 Days, #30 TAB 0 Refills 06/22/24 Amlodipine Besylate (Amlodipine Besylate) 10 Mg Tablet, 1 TAB PO DAILY for 30 Days, #30 TAB 0 Refills 06/22/24 Hydrochlorothiazide (Hydrochlorothiazide) 25 Mg Tablet, 1 TAB PO DAILY for 30 Days, #30 TAB 0 Refills 06/22/24 Discontinued Reported Medications Cholecalciferol (Vitamin D3) 1,250 Mcg (62965 Unit) Cap, 17709 UNITS PO QWEEK, CAP 04/01/24 Empagliflozin (Jardiance) 25 Mg Tablet, 1 TAB PO DAILY for 30 Days, #30 TAB 0 Refills 04/01/24 Hydrochlorothiazide (Hydrochlorothiazide) 25 Mg Tablet, 1 TAB PO DAILY for 30 Days, #30 TAB 0 Refills 04/01/24 Metformin HCl (Metformin HCl) 1,000 Mg Tablet, 1 TAB PO BID for 30 Days, #60 TAB 0 Refills 04/01/24 Rosuvastatin Calcium (Rosuvastatin Calcium) 40 Mg Tablet, 1 TAB PO DAILY for high cholesterol for 30 Days, #30 TAB 0 Refills 04/01/24 Losartan Potassium (Losartan Potassium) 100 Mg Tablet, 100 MG PO HS, TAB 04/01/24 Ferrous Sulfate (Ferrous Sulfate) 325 Mg (65 Mg Iron) Ectab, 1 TAB PO BID for 30 Days, #60 TAB 0 Refills 04/01/24 Continued Medications: Amlodipine Besylate (Amlodipine Besylate) 10 Mg Tablet 1 TAB PO DAILY for 30 Days, #30 TAB 0 Refills Hydrochlorothiazide (Hydrochlorothiazide) 25 Mg Tablet 1 TAB PO DAILY for 30 Days, #30 TAB 0 Refills Losartan Potassium (Losartan Potassium) 100 Mg Tablet 1 TAB PO DAILY for 30 Days, #30 TAB 0 Refills Metformin HCl (Metformin HCl) 1,000 Mg Tablet 1 TAB PO BID for 30 Days, #60 TAB 0 Refills Rosuvastatin Calcium (Rosuvastatin Calcium) 40 Mg Tablet 1 TAB PO DAILY for high cholesterol for 30 Days, #30 TAB 0 Refills Spironolactone (Spironolactone) 25 Mg Tablet 1 TAB PO DAILY for 30 Days, #30 TAB 0 Refills Time spent arranging discharge: 31-60 minutes ATTESTATION BY PHYSICIAN I have seen and examined the patient. I reviewed the documentation, medical decision making, and treatment plan as noted by the resident provider above. I agree with the findings and plan of care. Alex Melo MD, MANALI MD Jun 23, 2024 18:18
[2024-06-23] MEDS ORDERED: atorVAStatin 40 MG TABLET PO SCH (21:00)
== END 2024-06-23 18:00 | disposition home or self-care (01) ==
LOC: EDH 13:49 → EDHIP 15:24 → 2AH 23:20
PROVIDERS: ADMIT Internal Medicine; ATTEND Internal Medicine
DX: E87.1 Hypo-osmolality and hyponatremia (principal); E78.5 Hyperlipidemia, unspecified; E11.9 Type 2 diabetes mellitus without complications; R55 Syncope and collapse; I10 Essential (primary) hypertension; R32 Unspecified urinary incontinence; F41.9 Anxiety disorder, unspecified; I25.10 Atherosclerotic heart disease of native coronary artery without angina pectoris; Z79.899 Other long term (current) drug therapy; Z79.84 Long term (current) use of oral hypoglycemic drugs
CPT/HCPCS: 96372 ×2; 96361 ×2; 99285; 82550 ×2; 80076; 84484 ×3; 80048; 85025 ×2; 85610; 85730; 82948 ×5; 81001; 36415 ×2; 71045; 70450; 93005; 96365; 96366; 83735; 80053; 93880; G0378 ×26; J7030; J1815 ×2; J3475

== ENCOUNTER 2024-07-25 09:13 | Day surgery (SDC) | payer BC ==
[2024-07-21 10:06] LABS: BASOPHILS # (AUTO) 0.05 K/uL (0.00-0.20); BASOPHILS % (AUTO) 0.5 % (0.0-5.0); EOSINOPHILS # (AUTO) 0.15 K/uL (0.00-0.70); EOSINOPHILS % (AUTO) 1.6 % (0.0-8.0); HEMATOCRIT 35.5 % (42-54); IMMATURE GRANULOCYTE ABSOLUTE 0.03 K/uL (0-1); LYMPHOCYTES % (AUTO) 20.6 % (21.0-51.0); MEAN CORPUSCULAR HGB CONC 34.9 g/dL (32.0-36.0); MEAN CORPUSCULAR VOLUME 85.7 fL (79-99); MONOCYTES # (AUTO) 0.6 K/uL (0.1-1.0); MONOCYTES % (AUTO) 6.8 % (3.0-13.0); NEUTROPHILS # (AUTO) 6.6 K/uL (1.8-7.7); NEUTROPHILS % (AUTO) 70.2 % (40.0-77.0); PLATELET COUNT (AUTO) 238 K/uL (130-400); RED BLOOD CELL COUNT(AUTO) 4.14 MIL/uL (4.50-6.20); RED CELL DISTRIBUTION WIDTH 12.3 % (11.0-15.5); WHITE BLOOD COUNT (AUTO) 9.5 K/uL (4.8-10.8)
[2024-07-21 10:09] LABS: APPEARANCE,URINE CLEAR (CLEAR); BILIRUBIN,URINE NEGATIVE (NEGATIVE); COLOR,URINE LIGHT-YELLOW (YELLOW); GLUCOSE, URINE (UA) >=1000 mg/dL (NEGATIVE); KETONES,URINE NEGATIVE (NEGATIVE); LEUKOCYTE ESTERASE ,URINE NEGATIVE Leu/uL (NEGATIVE); NITRATE,URINE NEGATIVE (NEGATIVE); OCCULT BLOOD,URINE NEGATIVE (NEGATIVE); PH,URINE 6.5 (5.0-8.0); PROTEIN,URINE NEGATIVE (NEGATIVE); UROBILINOGEN,URINE 0.2 mg/dL (0.2-1.0)
[2024-07-21 10:10] LABS: CREATININE 0.9 mg/dL (0.5-1.3); POTASSIUM 3.8 mmol/L (3.5-5.1)
[2024-07-21 10:11] LABS: INR <= 0.93 (0.85-1.15); PROTHROMBIN TIME 10.3 SEC (9.6-11.6)
[2024-07-21 10:13] LABS: PARTIAL THROMBOPLASTIN TIME 27.8 SEC (26.3-35.5)
[2024-07-21 10:19] VITALS: BP 152/76; PULSE 74; RESP 18; TEMP 98.1
[2024-07-21 10:36] LABS: ADD UA MICROSCOPIC YES
[2024-07-21 10:37] LABS: RBC,URINE 0-1 /HPF (0-1); WBC,URINE 0-1 /HPF (0-1)
[2024-07-21 10:40] LABS: B-TYPE NATRIURETIC PEPTIDE 25 pg/mL (0-100)
--- NOTE | 2024-07-21 11:15 | HMCIMG ---
CHEST 1VW REASON: PRE OP COMPARISON: 06/22/2024 FINDINGS: Single view of the chest was obtained. Lungs are clear. Heart size is normal. There is no pulmonary vascular congestion. Mediastinum and bony thorax appear unremarkable. IMPRESSION: 1. Normal single view chest x-ray.
--- NOTE | 2024-07-22 07:30 | EKG ---
[facility] Test Date: 2024-07-21 Test Time: 10:48:00 Pat Name: SEAN FLEMING Department: [facility] Room: Gender: M Pharmacist Manager: [id number] : 1960 Requested By: PRIMITIVO AVILA Order Number: [id number] Reading MD: Primitivo Avila Measurements Intervals [place]ard Rate: 67 P: 39 ID: [id number] QRS: 45 QRSD: 86 T: 101 QT: 386 QTc: 407 Interpretive Statements Sinus rhythm Probable left atrial enlargement Nonspecific T abnormalities, lateral leads Compared to ECG 06/22/2024 14:22:38 No significant changes Electronically Signed On 07-24-2024 15:59:56 PYRIDINE OPERATOR by Primitivo Avila Please click the below link to view image of tracing.
--- NOTE | 2024-07-24 10:23 | NUR ---
RE: LABS REPORTED BMP RESULTS TO DR Lisbeth GARCES, NO NEW ORDERS RECEIVED.
[~2024-07-25] VITALS: Ht 175.3 cm; Wt 67.9 kg
[2024-07-25] VITALS (9 sets, daily range): BP systolic 134–165; BP diastolic 75–84; PULSE 52–68; RESP 14–18; TEMP 97–97.4
[~2024-07-25 09:13] MED LIST changes: +AEC81 PO; +AMLO-258 PO; +CARV6.25 PO; -EMPA25TA PO; -FERS325 PO; +SPIR25TA6 PO; -VITAD50000 PO
[2024-07-25] MEDS: 0.9%NACL 1000ML 1,000 ML IV SCH (12:49)
[2024-07-25] MEDS ORDERED: LIDOCAINE HCL 400MG/20ML VIAL ONE (14:43)
[2024-07-25] MEDS ORDERED: IOHEXOL 350 MG/ML 100ML INFUS..BTL IV ONE ×2 (14:43→15:49)
[2024-07-25] MEDS ORDERED: HEParin-NS 1,000 UNIT/500 ML 1,000 ML IV ONE (14:44)
[2024-07-25] MEDS ORDERED: VERAPAMIL HCL 2.5 MG/ML VIAL ONE (14:44)
[2024-07-25] MEDS ORDERED: HEParin 10,000 UNIT/10ML (1,000 UNIT/ML) VIAL ONE (14:44)
[2024-07-25] MEDS ORDERED: NITROGLYCERIN 50MG VIAL ONE (14:48)
[2024-07-25] MEDS ORDERED: FENTanyl CITRate PF 50 MCG/1 ML 2ML VIAL ONE (14:59)
[2024-07-25] MEDS ORDERED: MIDAZOLAM HCL 1 MG/ML 2ML VIAL ONE (15:00)
[2024-07-25] MEDS ORDERED: ASPIRIN 325MG EC TAB PO ONE (16:00)
[2024-07-25] MEDS ORDERED: cloPIDOgrel 300MG TAB ONE (16:00)
[2024-07-25] MEDS ORDERED: ATROPINE 1MG SYG IVP ONE (16:00)
[2024-07-25] MEDS ORDERED: 0.9%NACL 1000ML 1,000 ML IV SCH (16:30)
[2024-07-25] MEDS ORDERED: GLUCAGON 1MG KIT 1 MG ML IM PRN (16:30)
[2024-07-25] MEDS ORDERED: DEXTROSE 50%-WATER 50 ML DISP.SYRIN IV PRN (16:30)
--- NOTE | 2024-07-25 16:34 | PRN ---
PROCEDURE REPORT DATE OF PROCEDURE: Jul 25, 2024 REFUGE WORKER: [ Primitivo peters MD] PROCEDURE PERFORMED: Conscious sedation Ultrasound guided right radial artery access Selective left coronary artery angiogram Selective right coronary artery angiogram Left heart catheterization IFR of the LAD IVUS of the LAD and left main Status post successful IFR/IVUS guided PTCA/PCI of the proximal LAD (3 x 26 mm nicolas Seneca drug-eluting stent) x1 TR band 13 diane over right radial artery INDICATION: Abnormal CCTA DESCRIPTION OF PROCEDURE: After informed consent was obtained, the patient was prepped and draped in the usual sterile fashion. A 6 Italian arterial sheath was inserted in the right radial artery using ultrasound guidance with first pass wall puncture. The arterial sheath was aspirated and flushed. A 6 Italian JL 3.5 was then advanced to the ascending aorta over an exchange length J-tip guidewire, was aspirated and flushed, and was used for selective coronary angiograms in multiple obliquities. A JR-4 was advanced in a similar fashion to the ascending aorta over the J-tipped guidewire and was used for selective right coronary angiograms in multiple oblique views with findings as outlined below. The JR-4 catheter advanced into the LV and pressures were obtained with a pull-back across the aortic valve. Following review of the angiographic images decision was made to proceed with hemodynamic assessment of patient's LAD. We exchanged the diagnostic catheters for a 6 Italian XB 3 guide catheter which was advanced over the wire in similar fashion and engaged in the left main coronary artery. We provided 324 of aspirin, 600 of Plavix, and a total of 6000 units of IV heparin and following therapeutic ACT we advanced an IFR wire just beyond the guide and performed normalization. We then advanced the IFR wire distally following intracoronary nitroglycerin and performed IFR hemodynamic assessment which revealed 0.87 x 2 with no drift. Given these findings we exchanged the IFR wire with a 014 Prowater which was advanced in similar fashion to the distal LAD under fluoroscopic guidance. We then pre-dilated proximal LAD with a 3 x 20 mm compliant balloon to 14 DIANE. We then proceeded with IVUS imaging of the LAD for lesion characteristics and sizing. We then deployed a 3 by 26 mm nicolas Seneca drug-eluting stent at nominal pressures in the proximal LAD at 14 DIANE. We then post dilated the LAD with a 3 x 20 mm noncompliant balloon to 14 and 16 DIANE respectively. Repeat angiographic imaging revealed latter-day of WILEY 3 flow with no dissections or perforations. At this time all wires and catheters removed from the body and A TR band was placed over right radial artery. Patient tolerated procedure well with no postprocedure complication was tra nsferred to labor contractor holding in stable condition FLUOROSCOPY TIME: 16.5 min LEFT HEART HEMODYNAMICS: LVEDP 9 mm Hg and no gradient Ao CORONARY ANGIOGRAM: LEFT MAIN: Patent and 0% stenosis. Gives rise to LCx and LAD. LEFT ANTERIOR DESCENDING: Large vessel giving rise to two Diagonal branches. There is 70-80% prox LAD stenosis just after the first septal artery with WILEY 2 flow. (IFR 0.87 x 2 with no drift). Diagonals are patent LEFT CIRCUMFLEX: Large and gives rise to two OM branches. Diffusely calcified with 20-30% mid stenosis. OM2 is large, bifurcating with 90% ostial stenosis. RIGHT CORONARY ARTERY: Large, dominant vessel giving rise to PDA and PL branches. 60-70% proximal stenosis followed by 50-60% mid stenosis. PDA and PLV are widely patent HEMOSTASIS: TR band 12 diane over right radial artery INTERVENTIONS: Status post successful IFR/IVUS guided PTCA/PCI of the proximal LAD (3 x 26 mm nicolas Seneca drug-eluting stent) x1 COMPLICATIONS: None FINDINGS: Severe two-vessel CAD status post successful revascularization of the proximal LAD ESTIMATED BLOOD LOSS: 5 cc RECOMMENDATIONS/INSTRUCTIONS: Aggressive risk factor modification in addition to adapt (aspirin 81 mg q.day/Plavix 75 mg q.day) in addition to high-intensity statin therapy If patient remains symptomatic we will consider staged revascularization as RCA. CONTRAST DELIVERED TO PATIENT (mL): 210cc PRIMITIVO White MD, MD Jul 25, 2024 16:34
--- NOTE | 2024-07-25 16:50 | NUR ---
PER DR. Lisbeth GARCES NO IV FLUIDS NEED TO BE GIVEN. PT WAS GIVEN 1 LITER NS IN NEW ACCOUNT INTERVIEWER
--- NOTE | 2024-07-25 19:00 | NUR ---
VAS BAND REMOVED VSS NAD. RIGHT RADIAL SITE DRESSED WITH STERILE 4X4 AND TEGADERM. SITE ASYMPTOMATIC.
[2024-07-26] MEDS ORDERED: ASPIRIN 81MG CHEW TAB PO SCH (09:00)
[2024-07-26] MEDS ORDERED: cloPIDOgrel 75MG TAB PO SCH (09:00)
== END 2024-07-25 19:35 | disposition home or self-care (01) ==
LOC: DAH 09:13
PROVIDERS: ATTEND Student in an Organized Health Care Education/Training Program
DX: R93.1 Abnormal findings on diagnostic imaging of heart and coronary circulation (principal); R07.9 Chest pain, unspecified; I25.118 Atherosclerotic heart disease of native coronary artery with other forms of angina pectoris; I11.9 Hypertensive heart disease without heart failure; E78.5 Hyperlipidemia, unspecified; E11.9 Type 2 diabetes mellitus without complications; Z79.84 Long term (current) use of oral hypoglycemic drugs; Z79.899 Other long term (current) drug therapy
CPT/HCPCS: 80048; 83880; 85025; 85610; 85730; 81001; 36415 ×2; 71045; 93005; 92978; 92979; 93571; 85347; 82948; 93458; C9600; C1769 ×3; C1725 ×2; C1874; C1894; A4649; C1887; C1753; J3010; J3490 ×3; J7030; J1644 ×2; J2250; Q9967 ×2; A4215; A6402; A4222; A4221; A4663; A4216; A6206; A4606; Q9965 ×3; A4223 ×3; 99156; 99157; J0461

== ENCOUNTER → 2024-09-16 | Outpatient (CLI) | payer BC | END | disposition home or self-care (01) | LOC: SHCH 11:10 | PROVIDERS: ATTEND Student in an Organized Health Care Education/Training Program | DX: I08.0 Rheumatic disorders of both mitral and aortic valves (principal); I11.9 Hypertensive heart disease without heart failure; I25.10 Atherosclerotic heart disease of native coronary artery without angina pectoris | CPT/HCPCS: 93306 ==